=== PATIENT | female | born 1975 | race Caucasian/White ===

== ENCOUNTER 2017-06-04 17:18 | Inpatient (IN) | payer OTHER ==
[~2017-06-04] VITALS: Ht 157.5 cm; Wt 85.5 kg
[~2017-06-04 17:18] MED LIST: ALIGN4 MG PO; AUGMENTIN500 MG PO; FIBER THERAPY0.52 GM PO; FLAGYL500 MG PO; PROBIOTIC1 EAC1 PO
[2017-06-04 17:48] LABS: MCH 30.8 PG (29.0-34.0); MCHC 33.7 G/DL (30.0-36.0); MCV 91.5 FL (83-99); PLATELET COUNT 349 K/uL (156-360); RBC DIS.WIDTH-CV 12.7 % (11.8-14.6); RBC DIS.WIDTH-SD 41.9 % (39-53); RED BLOOD COUNT 3.28 M/uL (3.80-5.20); WHITE BLOOD COUNT 8.9 K/uL (4.1-10.2)
[2017-06-04 17:51] LABS: HEMOGLOBIN 10.1 G/DL (11.9-15.5)
[2017-06-04 17:55] LABS: CHLORIDE 107 mEq/L (99-109); POTASSIUM 3.9 mEq/L (3.7-5.4); SODIUM 138 mEq/L (136-147)
[2017-06-04 17:57] LABS: GLUCOSE 139 mg/dL (70-99)
[2017-06-04 18:01] LABS: CREATININE 0.9 mg/dL (0.6-1.3); GFR ESTIMATE (CALCULATED) > 59 mL/min/
[2017-06-04 18:02] LABS: UREA NITROGEN (BUN) 13 mg/dL (9-23)
[2017-06-04 20:34] LABS: HEMATOCRIT 29.3 % (36.0-46.0); HEMOGLOBIN 9.9 G/DL (11.9-15.5); MCH 30.7 PG (29.0-34.0); MCHC 33.8 G/DL (30.0-36.0); PLATELET COUNT 364 K/uL (156-360); RBC DIS.WIDTH-CV 12.7 % (11.8-14.6); RBC DIS.WIDTH-SD 42.1 % (39-53); RED BLOOD COUNT 3.22 M/uL (3.80-5.20)
[2017-06-04] MEDS ORDERED: PROBIOTIC1 EAC1 PO (23:08)
[2017-06-04] MEDS ORDERED: FLAGYL500 MG PO (23:09)
[2017-06-04] MEDS ORDERED: AMOXICILLIN875 MG PO (23:09)
[2017-06-04] MEDS ORDERED: AMITRIPTYLINE H10 MG PO (23:10)
[2017-06-04] MEDS ORDERED: CLARITIN,ALAVAR10 MG PO (23:10)
[2017-06-04] MEDS ORDERED: RANITIDINE HCL300 MG PO (23:10)
[2017-06-04] MEDS ORDERED: TYLENOL EXTRA500 MG PO (23:10)
[2017-06-05] VITALS (15 sets, daily range): BP systolic 101–124; BP diastolic 50–68
[2017-06-05 01:14] LABS: ALBUMIN 3.4 g/dL (3.2-4.8)
[2017-06-05 01:16] LABS: TOTAL PROTEIN 5.2 g/dL (6.4-8.3)
[2017-06-05 01:18] LABS: TOTAL BILIRUBIN 0.1 mg/dL (0.0-1.0)
[2017-06-05 01:19] LABS: ALKALINE PHOSPHATASE 34 IU/L (3-129)
[2017-06-05 01:22] LABS: ALT (GPT) 21 IU/L (3-49); AST (GOT) 12 IU/L (2-34)
[2017-06-05 01:26] LABS: PTT 26.8 SEC (25-37)
[2017-06-05 05:25] LABS: HEMATOCRIT 24.2 % (36.0-46.0); MCV 92.7 FL (83-99)
[2017-06-05 06:08] LABS: CHLORIDE 108 MEQ/L (99-109); CREATININE 0.9 MG/DL (0.6-1.3); GFR ESTIMATE (CALCULATED) > 59 mL/min/; GLUCOSE 107 mg/dL (70-99); POTASSIUM 4.2 MEQ/L (3.7-5.4); SODIUM 140 MEQ/L (136-147); UREA NITROGEN (BUN) 13 mg/dL (9-23)
[2017-06-05 12:19] LABS: HEMATOCRIT 23.6 % (36.0-46.0); HEMOGLOBIN 7.6 G/DL (11.9-15.5); MCV 92.9 FL (83-99)
[2017-06-06 00:19] LABS: HEMATOCRIT 30.4 % (36.0-46.0); HEMOGLOBIN 10.4 G/DL (11.9-15.5); MCV 88.9 FL (83-99)
[2017-06-06 04:18] VITALS: BP 111/71
[2017-06-06 06:05] LABS: HEMATOCRIT 30.6 % (36.0-46.0); MCH 29.3 PG (29.0-34.0); MCHC 32.7 G/DL (30.0-36.0); MCV 89.7 FL (83-99); NRBC (%) 0.2 /100 WBC (0-0); PLATELET COUNT 301 K/uL (156-360); RBC DIS.WIDTH-CV 15.1 % (11.8-14.6); RED BLOOD COUNT 3.41 M/uL (3.80-5.20); WHITE BLOOD COUNT 9.7 K/uL (4.1-10.2)
[2017-06-06 06:43] LABS: CHLORIDE 112 MEQ/L (99-109); CREATININE 0.8 MG/DL (0.6-1.3); GFR ESTIMATE (CALCULATED) > 59 mL/min/; GLUCOSE 92 mg/dL (70-99); MAGNESIUM 2.6 mg/dl (1.3-2.7); POTASSIUM 3.9 MEQ/L (3.7-5.4); SODIUM 139 MEQ/L (136-147); UREA NITROGEN (BUN) 8 mg/dL (9-23)
[2017-06-06 07:33] VITALS: BP 109/65
[2017-06-06 11:42] VITALS: BP 102/59
[2017-06-06 15:59] VITALS: BP 111/56
[2017-06-06 17:54] LABS: HEMATOCRIT 27.4 % (36.0-46.0); MCV 90.7 FL (83-99)
[2017-06-06 20:12] VITALS: BP 119/72
[2017-06-06 23:50] VITALS: BP 104/57
[2017-06-07] VITALS (10 sets, daily range): BP systolic 100–136; BP diastolic 57–66
[2017-06-07 05:49] LABS: HEMATOCRIT 29.4 % (36.0-46.0); HEMOGLOBIN 9.7 G/DL (11.9-15.5); MCH 30.1 PG (29.0-34.0); MCV 91.3 FL (83-99); NRBC (%) 0.2 /100 WBC (0-0); PLATELET COUNT 260 K/uL (156-360); RBC DIS.WIDTH-CV 14.9 % (11.8-14.6); RBC DIS.WIDTH-SD 49.4 % (39-53); RED BLOOD COUNT 3.22 M/uL (3.80-5.20); WHITE BLOOD COUNT 8.4 K/uL (4.1-10.2)
[2017-06-07 07:06] LABS: CHLORIDE 110 MEQ/L (99-109); CREATININE 0.8 MG/DL (0.6-1.3); GFR ESTIMATE (CALCULATED) > 59 mL/min/; GLUCOSE 77 mg/dL (70-99); POTASSIUM 4.1 MEQ/L (3.7-5.4); SODIUM 140 MEQ/L (136-147); UREA NITROGEN (BUN) 7 mg/dL (9-23)
[2017-06-07 16:39] LABS: HEMATOCRIT 33.5 % (36.0-46.0); HEMOGLOBIN 11.3 G/DL (11.9-15.5); MCV 90.3 FL (83-99)
[2017-06-08] VITALS (7 sets, daily range): BP systolic 101–148; BP diastolic 55–77
[2017-06-08 05:17] LABS: MCV 90.3 FL (83-99)
[2017-06-08 12:24] LABS: HEMATOCRIT 31.1 % (36.0-46.0); HEMOGLOBIN 10.1 G/DL (11.9-15.5); MCV 89.9 FL (83-99)
[2017-06-09 04:27] VITALS: BP 105/71
[2017-06-09 07:06] LABS: BASOPHIL (%) 0.5 % (0-1); EOSINOPHIL COUNT 0.1 K/uL (0-0.3); HEMATOCRIT 30.5 % (36.0-46.0); HEMOGLOBIN 9.9 G/DL (11.9-15.5); IMMATURE GRANULOCYTE (%) 0.3 % (0.0-0.7); LYMPHOCYTE (%) 23.3 % (15-42); LYMPHOCYTE COUNT 1.4 K/uL (1.0-2.8); MCH 29.6 PG (29.0-34.0); MCHC 32.5 G/DL (30.0-36.0); MONOCYTE (%) 10.6 % (3-12); MONOCYTE COUNT 0.6 K/uL (0-0.8); NEUTROPHIL (%) 63.3 % (45-76); NEUTROPHIL COUNT 3.8 K/uL (1.8-6.4); RBC DIS.WIDTH-CV 14.8 % (11.8-14.6); RBC DIS.WIDTH-SD 46.7 % (39-53); RED BLOOD COUNT 3.35 M/uL (3.80-5.20)
[2017-06-09 07:16] LABS: PLATELET COUNT 342 K/uL (156-360)
[2017-06-09 07:45] VITALS: BP 108/77
[2017-06-09 15:20] VITALS: BP 110/68
[2017-06-09 18:16] LABS: HEMATOCRIT 31.2 % (36.0-46.0); HEMOGLOBIN 10.1 G/DL (11.9-15.5)
[2017-06-09 19:44] VITALS: BP 114/67
[2017-06-09 23:32] VITALS: BP 102/60
[2017-06-10 03:53] VITALS: BP 109/61
[2017-06-10 06:21] LABS: HEMOGLOBIN 9.7 G/DL (11.9-15.5); MCH 29.4 PG (29.0-34.0); MCHC 32.3 G/DL (30.0-36.0); MCV 90.9 FL (83-99); PLATELET COUNT 358 K/uL (156-360); RBC DIS.WIDTH-SD 46.4 % (39-53); WHITE BLOOD COUNT 5.8 K/uL (4.1-10.2)
[2017-06-10 06:27] LABS: CHLORIDE 104 MEQ/L (99-109); CREATININE 0.9 MG/DL (0.6-1.3); GFR ESTIMATE (CALCULATED) > 59 mL/min/; POTASSIUM 3.5 MEQ/L (3.7-5.4); SODIUM 142 MEQ/L (136-147); UREA NITROGEN (BUN) 8 mg/dL (9-23)
[2017-06-10 06:28] LABS: GLUCOSE 108 mg/dL (70-99)
[2017-06-10 08:03] VITALS: BP 110/59
[2017-06-10 12:05] VITALS: BP 125/58
[2017-06-10 15:47] VITALS: BP 132/72
[2017-06-10 23:04] VITALS: BP 106/58
[2017-06-11 05:35] LABS: HEMATOCRIT 29.9 % (36.0-46.0); HEMOGLOBIN 9.6 G/DL (11.9-15.5); MCH 29.7 PG (29.0-34.0); MCHC 32.1 G/DL (30.0-36.0); MCV 92.6 FL (83-99); PLATELET COUNT 358 K/uL (156-360); RBC DIS.WIDTH-CV 15.1 % (11.8-14.6); RED BLOOD COUNT 3.23 M/uL (3.80-5.20); WHITE BLOOD COUNT 5.7 K/uL (4.1-10.2)
[2017-06-11 08:04] VITALS: BP 115/63
== END 2017-06-11 11:10 | disposition home or self-care (01) | DRG 378 ==
LOC: EME 17:18 → 3EAST 06-05 00:37 → EDOF 06-05 00:37 → ENRESERV 06-05 00:39 → 3EAST 06-05 02:22
PROVIDERS: Emergency Medicine; Hospitalist; Internal Medicine; Internal Medicine Gastroenterology
DX: K57.31 Diverticulosis of large intestine without perforation or abscess with bleeding (principal); D62 Acute posthemorrhagic anemia; K21.9 Gastro-esophageal reflux disease without esophagitis; K22.10 Ulcer of esophagus without bleeding; K44.9 Diaphragmatic hernia without obstruction or gangrene; G43.909 Migraine, unspecified, not intractable, without status migrainosus; K64.8 Other hemorrhoids; E66.9 Obesity, unspecified; Z68.32 Body mass index [BMI] 32.0-32.9, adult; Z80.3 Family history of malignant neoplasm of breast; Z87.891 Personal history of nicotine dependence; Z90.710 Acquired absence of both cervix and uterus
CPT/HCPCS: 36415; 74177; 78278; 78290; 80048; 80053; 80076; 82150; 83605; 83690; 83735; 85014; 85018; 85025; 85027; 85610; 85651; 85730; 86140; 86850; 86900; 86901; 86920; 87493; 99281; 99285; A9512; A9560; C9113; J1644; J2270; J2405; J7030; J7120; P9016